=== PATIENT | female | born 1975 | race Caucasian/White ===

== ENCOUNTER → 2023-07-01 | Emergency (ER) | payer OTHER ==
[~2023-07-01] VITALS: Ht 170.2 cm; Wt 71.2 kg
[~2023-07-01] MED LIST: CYCL5TAB PO; DIAZEPAM 5 MG TABLET PO ONE; IBUP-2070 PO; KETOROLAC 30MG VIAL (30MG/ML) IM ONE
[2023-07-01 15:48] VITALS: BP 146/91; PULSE 88; RESP 14
== END ==
LOC: EDH 15:21
DX: S39.012A Strain of muscle, fascia and tendon of lower back, initial encounter (principal); S30.0XXA Contusion of lower back and pelvis, initial encounter; M54.6 Pain in thoracic spine; E03.9 Hypothyroidism, unspecified; Z98.890 Other specified postprocedural states; Z88.8 Allergy status to other drugs, medicaments and biological substances; W18.39XA Other fall on same level, initial encounter; Y93.01 Activity, walking, marching and hiking; Y92.89 Other specified places as the place of occurrence of the external cause; Y99.8 Other external cause status
CPT/HCPCS: 99284; 71045; 72100; 72170; 72072; 96372; J1885